=== PATIENT | female | born 1995 | race Caucasian/White ===

== ENCOUNTER 2017-03-22 08:22 | Emergency (ER) | payer OTHER ==
[2017-03-22 09:20] VITALS: BP 118/69
--- NOTE | 2017-03-22 09:31 | UC ---
Throat Pain/Nasal Diaz HPI - HPI Summary HPI Summary: complaint of nasal congestion and cough that started 3-4 days ago sore throat d/t coughing bilateral ear pain coughing so hard that it makes her back hurt feels nauseous -vomited 2x d/t coughing so hard, denies diarrhea felt feverish and has had chills denies headaches took some nyquil without relief hasn't used her albuterol inhaler d/t expiration date - History of Current Complaint Chief Complaint: UCRespiratory Stated Complaint: COUGH,YELLOW TONGUE,SOB Time Seen by Provider: 03/22/17 09:22 Hx Obtained From: Patient Hx Last Menstrual Period: 03/08/17 - Allergies/Home Medications Allergies/Adverse Reactions: Allergies Allergy/AdvReac Type Severity Reaction Status Date / Time No Known Allergies Allergy Verified 03/22/17 09:14 PMH/Surg Hx/FS Hx/Imm Hx Previously Healthy: Yes Endocrine History Of: Denies: Diabetes Cardiovascular History Of: Denies: Cardiac Disorders Respiratory History Of: Reports: Asthma Denies: COPD GI/ History Of: Denies: Gastroesophageal Reflux Neurological History Of: Denies: TIA - Surgical History Surgical History: Yes Surgery Procedure, Year, and Place: ear tube, adenoids - Family History Known Family History: Positive: None - Social History Occupation: Employed Full-time Lives: With Family Alcohol Use: None Substance Use Type: None Smoking Status (MU): Heavy Every Day Tobacco Smoker Type: Cigarettes, eCigarettes Amount Used/How Often: 1/2 PPD Length of Time of Smoking/Using Tobacco: 2 Years Have You Smoked in the Last Year: Yes When Did the Patient Quit Smoking/Using Tobacco: ~08/2015 Household Exposure Type: Cigarettes Cessation Counseling: Patient Advised to Stop - Immunization History Most Recent Influenza Vaccination: Not the 2014/2015 Season Vaccination Up to Date: Yes Review of Systems Constitutional: Fever, Chills Skin: Negative Eyes: Negative ENT: Ear Ache, Nasal Discharge Respiratory: Cough Cardiovascular: Negative Gastrointestinal: Negative Genitourinary: Negative Motor: Negative Neurovascular: Negative Musculoskeletal: Negative Neurological: Headache Psychological: Negative All Other Systems Reviewed And Are Negative: Yes Physical Exam Triage Information Reviewed: Yes Appearance: No Pain Distress, Well-Nourished Vital Signs: Initial Vital Signs Temp 98.5 F 03/22/17 09:15 Pulse 88 03/22/17 09:15 Resp 18 03/22/17 09:15 BP 118/69 03/22/17 09:15 Pulse Ox 94 03/22/17 09:15 Vital Signs Reviewed: Yes Eyes: Positive: Conjunctiva Clear ENT: Positive: Pharyngeal erythema, Nasal congestion, Nasal drainage, TMs normal Neck: Positive: No Lymphadenopathy Respiratory: Positive: No respiratory distress, Rhonchi - lower lobes, Wheezing - throughout Cardiovascular: Positive: RRR, No Murmur, Pulses Normal Abdomen Description: Positive: Nontender, Soft Bowel Sounds: Positive: Present Musculoskeletal Exam: Normal Neurological: Positive: Alert Psychological Exam: Normal Skin Exam: Normal Re-Evaluation - Re-Evaluation First Eval Change: Improved - less wheezing throughout Throat Pain/Nasal Course/Dx - Course Course Of Treatment: exam completed. will treat for asthma exacerbation/ bronchitis -smoker - Differential Dx/Diagnosis Differential Diagnosis/HQI/PQRI: Influenza, URI, Other - bronchitis Provider Diagnoses: asthma exacerbation Discharge - Discharge Plan Condition: Stable Disposition: HOME Prescriptions: Albuterol HFA INHALER* [Ventolin HFA Inhaler*] 2 puff INH Q4H PRN #1 mdi PRN Reason: Wheezing Azithromycin TAB* [Zithromax TAB (Z-CHRISSY) 250 mg #6 tabs] 2 tab PO .TODAY, THEN 1 DAILY #1 chrissy predniSONE TAB* [Deltasone TAB*] 50 mg PO DAILY #5 tab Patient Education Materials: Asthma (ED), How to Stop Smoking (ED) Referrals: No Primary Care Phys,NOPCP [Primary Care Provider] - [facility] [Outside] Additional Instructions: Please take antibiotic as directed Use your albuterol inhaler every 4-6 hours when needed for wheezing, shortness of breath or uncontrolled coughing. Increase fluids and rest Take acetaminophen or ibuprofen for fever or pain Please review your discharge instructions. If your symptoms do not improve please call your primary care provider or return to urgent care.
[2017-03-22] MEDS ORDERED: Albuterol/Ipratropium NEB.SOL* Albuterol 2.5 MG/Ipratropium 0.5 MG 3 ML INH ONE (09:34)
== END 2017-03-22 10:28 | disposition home or self-care (01) ==
LOC: UCCORT 08:22
DX: J45.901 Unspecified asthma with (acute) exacerbation (principal); F17.210 Nicotine dependence, cigarettes, uncomplicated
CPT/HCPCS: 87502; 99212; A9270-GY; G0463

== ENCOUNTER 2017-07-25 15:59 | Emergency (ER) | payer OTHER ==
[2017-07-25 17:56] VITALS: BP 107/70
[2017-07-25] MEDS ORDERED: Cephalexin CAP* 500 MG PO ONE (18:18)
--- NOTE | 2017-07-25 18:18 | UC ---
Complaint Female HPI - HPI Summary HPI Summary: patient has had a few days of buring with urination and increase frequency - History Of Current Complaint Chief Complaint: UCGU Stated Complaint: URINARY Time Seen by Provider: 07/25/17 18:06 Hx Obtained From: Patient Hx Last Menstrual Period: doesn't get - has implanon ?: No Onset/Duration: Sudden Onset, Lasting Days Timing: Lasting Days Severity Initially: Moderate Severity Currently: Moderate Character: Dull Aggravating Factor(s): Urination - Allergies/Home Medications Allergies/Adverse Reactions: Allergies Allergy/AdvReac Type Severity Reaction Status Date / Time No Known Allergies Allergy Verified 07/25/17 17:52 PMH/Surg Hx/FS Hx/Imm Hx Previously Healthy: Yes - Surgical History Surgical History: Yes Surgery Procedure, Year, and Place: ear tubes, adenoids - Family History Known Family History: Positive: None Negative: Cardiac Disease, Hypertension - Social History Alcohol Use: Occasionally Substance Use Type: None Smoking Status (MU): Heavy Every Day Tobacco Smoker Type: Cigarettes Amount Used/How Often: 1/2 PPD Length of Time of Smoking/Using Tobacco: 2 Years Have You Smoked in the Last Year: Yes When Did the Patient Quit Smoking/Using Tobacco: ~08/2015 Household Exposure Type: Cigarettes - Immunization History Most Recent Influenza Vaccination: Not the Season Vaccination Up to Date: Yes Review of Systems Constitutional: Chills, Fatigue Skin: Negative Eyes: Negative ENT: Negative Respiratory: Negative Cardiovascular: Negative Gastrointestinal: Negative Genitourinary: Dysuria, Hematuria, Frequency Motor: Negative Neurovascular: Negative Musculoskeletal: Negative Neurological: Negative Psychological: Negative All Other Systems Reviewed And Are Negative: Yes Physical Exam Triage Information Reviewed: Yes Appearance: Well-Nourished, Ill-Appearing, Pain Distress Vital Signs: Initial Vital Signs Temp 99.1 F 07/25/17 17:53 Pulse 101 07/25/17 17:53 Resp 16 07/25/17 17:53 BP 107/70 07/25/17 17:53 Pulse Ox 99 07/25/17 17:53 Vital Signs Reviewed: Yes Eye Exam: Normal ENT Exam: Normal ENT: Positive: Pharynx normal, Pharyngeal erythema, TMs normal Dental Exam: Normal Neck exam: Normal Respiratory Exam: Normal Cardiovascular Exam: Normal Cardiovascular: Positive: RRR, No Murmur, Pulses Normal Abdominal Exam: Normal Abdomen Description: Positive: Nontender, No Organomegaly, Soft, CVA Tenderness (R) - neg, CVA Tenderness (L) - neg Bowel Sounds: Positive: Present Musculoskeletal Exam: Normal Musculoskeletal: Positive: Strength Intact, ROM Intact, No Edema Neurological Exam: Normal Neurological: Positive: Alert, Muscle Tone Normal Psychological Exam: Normal Skin Exam: Normal Complaint Female Dx - Course Course Of Treatment: hx obtained, exam performed ,meds reviewed, UA obtained, treated for UTI - Differential Dx/Diagnosis Differential Diagnosis/HQI/PQRI: Ureteral Stone, Urinary Tract Infection Provider Diagnoses: UTI Discharge - Discharge Plan Condition: Stable Disposition: HOME Prescriptions: Cephalexin CAP* [Keflex CAP*] 500 mg PO BID #14 cap Patient Education Materials: Urinary Tract Infection in Women (ED) Additional Instructions: 1. increase fluid intake and get plenty of rest. 2. Take the medication as prescribed.
== END 2017-07-25 18:27 | disposition home or self-care (01) ==
LOC: UCCORT 15:59
DX: N39.0 Urinary tract infection, site not specified (principal); F17.210 Nicotine dependence, cigarettes, uncomplicated
CPT/HCPCS: 81003; 87086; 99212; A9270-GY; G0463

== ENCOUNTER 2017-09-04 10:34 | Emergency (ER) | payer OTHER ==
[2017-09-04 10:47] VITALS: BP 114/75
--- NOTE | 2017-09-04 10:48 | UC ---
Respiratory Complaint HPI - HPI Summary HPI Summary: 22 YEAR OLD FEMALE PRESENTS WITH COMPLAINS OF COUGH, SINUS PRESSURE AND POST NASAL DRIP. - History of Current Complaint Chief Complaint: UCRespiratory Stated Complaint: COUGH CONGESTION Time Seen by Provider: 09/04/17 10:48 Hx Obtained From: Patient Hx Last Menstrual Period: unknown, nexplanon Onset/Duration: Sudden Onset Timing: Constant Severity Initially: Moderate Severity Currently: Moderate Pain Scale Used: 0-10 Numeric - 5 - Allergies/Home Medications Allergies/Adverse Reactions: Allergies Allergy/AdvReac Type Severity Reaction Status Date / Time No Known Allergies Allergy Verified 09/04/17 10:46 PMH/Surg Hx/FS Hx/Imm Hx - Surgical History Surgical History: Yes Surgery Procedure, Year, and Place: ear tubes, adenoids - Family History Known Family History: Positive: None Negative: Cardiac Disease, Hypertension - Social History Alcohol Use: None Substance Use Type: None Smoking Status (MU): Never Smoked Tobacco Type: Cigarettes Amount Used/How Often: 1/2 PPD Length of Time of Smoking/Using Tobacco: 2 Years Have You Smoked in the Last Year: No When Did the Patient Quit Smoking/Using Tobacco: ~08/2015 Household Exposure Type: Cigarettes - Immunization History Most Recent Influenza Vaccination: not 2017 Vaccination Up to Date: Yes Review of Systems Constitutional: Negative Skin: Negative Eyes: Negative ENT: Negative Respiratory: Negative Cardiovascular: Negative Gastrointestinal: Negative Genitourinary: Negative Motor: Negative Neurovascular: Negative Musculoskeletal: Negative Neurological: Negative Psychological: Negative All Other Systems Reviewed And Are Negative: Yes Physical Exam Triage Information Reviewed: Yes Appearance: Well-Appearing Vital Signs: Initial Vital Signs Temp 36.9 C 09/04/17 10:42 Pulse 91 09/04/17 10:42 Resp 16 09/04/17 10:42 BP 114/75 09/04/17 10:42 Pulse Ox 98 09/04/17 10:42 Vital Signs Reviewed: Yes Eye Exam: Normal ENT: Positive: Pharyngeal erythema, Nasal congestion, Nasal drainage Dental Exam: Normal Neck exam: Normal Neck: Positive: 1 Respiratory: Positive: Rhonchi, Wheezing Cardiovascular Exam: Normal Abdominal Exam: Normal Musculoskeletal Exam: Normal Neurological Exam: Normal Psychological Exam: Normal Skin Exam: Normal UC Diagnostic Evaluation - Laboratory O2 Sat by Pulse Oximetry: 98 Respiratory Course/Dx - Differential Dx/Diagnosis Provider Diagnoses: BRONCHITIS. PHARYNGITIS Discharge - Discharge Plan Condition: Stable Disposition: HOME Prescriptions: Azithromyxin CHRISSY (NF) [Z-Chrissy (Zithromax) 250 mg tabs #6] 2 tab PO .TODAY, THEN 1 DAILY #6 tab Benzonatate [TESSALON 200 MG CAP] 200 mg PO TID PRN #30 cap PRN Reason: Cough LoraTADine TAB(NF) [Claritin 10 MG TAB(NF)] 10 mg PO DAILY #30 tab guaiFENesin/CODIEN 100MG-10MG* [Robitussin AC 100Mg-10Mg*] 5 ml PO Q8H PRN #120 ml MDD 15 PRN Reason: Cough Patient Education Materials: Bronchospasm (ED), Acute Cough (ED) Referrals: No Primary Care Phys,NOPCP [Primary Care Provider] -
== END 2017-09-04 11:02 | disposition home or self-care (01) ==
LOC: UCCORT 10:34
DX: J40 Bronchitis, not specified as acute or chronic (principal); J02.9 Acute pharyngitis, unspecified
CPT/HCPCS: 99212; G0463

== ENCOUNTER 2018-01-19 19:40 | Emergency (ER) | payer OTHER ==
[2018-01-19 20:37] VITALS: BP 114/62
--- NOTE | 2018-01-19 20:42 | UC ---
Skin Complaint HPI - HPI Summary HPI Summary: Pt with 3 days development right axillary erythema, raised area mild TTP no drainage no h/o similar no h/o MRSA pt states tried to "squeeze" increased pain without drainage. Not immunocompromised Pt's medications reviewed this visit - History of Current Complaint Chief Complaint: UCSkin Time Seen by Provider: 01/19/18 20:41 Stated Complaint: LUMP UNDER RIGHT ARM Hx Obtained From: Patient Hx Last Menstrual Period: DOES NOT HAVE REGULAR PEROIDS, HAS THE IMPLAMON ?: No Onset/Duration: Gradual Onset Skin Exposure Onset/Duration: Days Ago Timing: Constant Onset Severity: Mild Current Severity: Mild Pain Intensity: 2 Pain Scale Used: 0-10 Numeric Location: Discrete, Other - right axilla Character: Redness, Raised, Painful Aggravating Factor(s): Touch Alleviating Factor(s): Nothing Associated Signs & Symptoms: Positive: Negative - Allergy/Home Medications Allergies/Adverse Reactions: Allergies Allergy/AdvReac Type Severity Reaction Status Date / Time No Known Allergies Allergy Verified 01/19/18 20:25 Review of Systems Constitutional: Negative Skin: Other Is Patient Immunocompromised?: No All Other Systems Reviewed And Are Negative: Yes PMH/Surg Hx/FS Hx/Imm Hx Previously Healthy: Yes - Surgical History Surgical History: Yes Surgery Procedure, Year, and Place: ear tubes, adenoids - Family History Known Family History: Positive: None Negative: Cardiac Disease, Hypertension - Social History Occupation: Employed Full-time Lives: With Family Alcohol Use: Rare Substance Use Type: None Smoking Status (MU): Light Every Day Tobacco Smoker Type: Cigarettes Amount Used/How Often: 1/2 PPD Length of Time of Smoking/Using Tobacco: 2 Years Have You Smoked in the Last Year: No When Did the Patient Quit Smoking/Using Tobacco: ~08/2015 Household Exposure Type: Cigarettes - Immunization History Most Recent Influenza Vaccination: not 2017 Vaccination Up to Date: Yes Physical Exam Triage Information Reviewed: Yes Appearance: Well-Appearing, No Pain Distress, Well-Nourished Vital Signs: Initial Vital Signs Temp 98.6 F 01/19/18 20:26 Pulse 88 01/19/18 20:26 Resp 18 01/19/18 20:26 BP 114/62 01/19/18 20:26 Pulse Ox 99 01/19/18 20:26 Eye Exam: Normal Eyes: Positive: Conjunctiva Clear ENT Exam: Normal ENT: Positive: Hearing grossly normal, Pharynx normal, TMs normal Neck exam: Normal Neck: Positive: Supple, Nontender Respiratory Exam: Normal Respiratory: Positive: Chest non-tender, Lungs clear, Normal breath sounds, No respiratory distress, No accessory muscle use Cardiovascular Exam: Normal Cardiovascular: Positive: RRR, No Murmur, Pulses Normal Musculoskeletal Exam: Normal Musculoskeletal: Positive: Strength Intact Neurological Exam: Normal Neurological: Positive: Alert Psychological Exam: Normal Psychological: Positive: Normal Response To Family Skin: Positive: Other - right axilla - inflammed follicle anterior margin on axilla slight firm, indurated no fluctuance mild warmth TTP no drainage mild surroudning erythema Course/Dx - Course Course Of Treatment: Pt with inflammed focal folliculitis in right axilla. + indurated, no drainage. mild TTP. d/w pt at length. warm soaks. doxycycline. motrin/apap. return precautions discussed. Pt comfortable and in agreement with plan - Diagnoses Provider Diagnoses: folliculitis Discharge - Discharge Plan Condition: Stable Disposition: HOME Prescriptions: DOXYcycline CAP(*) [DOXYcycline 100MG CAP(*)] 100 mg PO DAILY #20 cap Patient Education Materials: Cellulitis (ED), Folliculitis (ED) Referrals: No Primary Care Phys,NOPCP [Primary Care Provider] - Additional Instructions: apply soaking wet, warm wash cloth to your wound for 20 minutes at a time, 2-3 times a day okay to alternate ibuprofen (advil, motrin) and tylenol every 3 hours as needed for pain take antibiotics as prescribed until gone If you develop increased reddness, red streaking,fever or any other concerns it is recommended you go to the emergency department for futher evaluation and treatment
[2018-01-19] MEDS ORDERED: DOXYcycline CAP(*) 100 MG PO ONE (20:52)
== END 2018-01-19 21:02 | disposition home or self-care (01) ==
LOC: UCCORT 19:40
DX: L73.9 Follicular disorder, unspecified (principal); Z87.891 Personal history of nicotine dependence
CPT/HCPCS: 99212; A9270-GY; G0463

== ENCOUNTER 2018-01-25 16:22 | Emergency (ER) | payer OTHER | END 2018-01-25 17:01 | disposition left against medical advice (07) | LOC: UCCORT 16:22 | DX: H92.03 Otalgia, bilateral (principal); R05 Cough; Z53.21 Procedure and treatment not carried out due to patient leaving prior to being seen by health care provider ==

== ENCOUNTER 2018-01-26 08:28 | Emergency (ER) | payer OTHER ==
[2018-01-26 08:50] VITALS: BP 132/86
--- NOTE | 2018-01-26 09:07 | UC ---
Respiratory Complaint HPI - HPI Summary HPI Summary: cough x 1 day + nasal congest, pnd no sore throat, no fever, no chills - History of Current Complaint Chief Complaint: UCGeneralIllness Stated Complaint: RUNNY NOSE/COUGH Time Seen by Provider: 01/26/18 09:01 Hx Obtained From: Patient Hx Last Menstrual Period: implanon ?: No Onset/Duration: Gradual Onset, Lasting Days - 1, Still Present Timing: Constant Severity Initially: Moderate Severity Currently: Moderate Pain Intensity: 0 Character: Cough: Nonproductive Aggravating Factors: Exertion, Deep Breaths Alleviating Factors: Nothing Associated Signs And Symptoms: Positive: Chills, URI, Nasal Congestion. Negative: Fever, Wheezing, Hemoptysis, Dizziness - Allergies/Home Medications Allergies/Adverse Reactions: Allergies Allergy/AdvReac Type Severity Reaction Status Date / Time No Known Allergies Allergy Verified 01/26/18 08:50 PMH/Surg Hx/FS Hx/Imm Hx Previously Healthy: Yes - Surgical History Surgical History: Yes Surgery Procedure, Year, and Place: ear tubes, adenoids - Family History Known Family History: Positive: None Negative: Cardiac Disease, Hypertension - Social History Alcohol Use: None Substance Use Type: None Smoking Status (MU): Never Smoked Tobacco Type: Cigarettes Amount Used/How Often: 1/2 PPD Length of Time of Smoking/Using Tobacco: 2 Years Have You Smoked in the Last Year: No When Did the Patient Quit Smoking/Using Tobacco: ~08/2015 Household Exposure Type: Cigarettes - Immunization History Most Recent Influenza Vaccination: not 2017 Vaccination Up to Date: Yes Review of Systems Constitutional: Negative Skin: Negative Eyes: Negative ENT: Sore Throat, Nasal Discharge, Sinus Congestion Respiratory: Cough Cardiovascular: Negative Gastrointestinal: Negative Genitourinary: Negative Is Patient Immunocompromised?: No All Other Systems Reviewed And Are Negative: Yes Physical Exam Triage Information Reviewed: Yes Appearance: Well-Appearing, No Pain Distress, Well-Nourished Vital Signs: Initial Vital Signs Temp 98.0 F 01/26/18 08:45 Pulse 90 01/26/18 08:45 Resp 18 01/26/18 08:45 BP 132/86 01/26/18 08:45 Pulse Ox 97 01/26/18 08:45 Vital Signs Reviewed: Yes Eyes: Positive: Conjunctiva Clear ENT: Positive: Pharyngeal erythema, Nasal drainage, TMs normal Neck: Positive: Supple, Nontender, No Lymphadenopathy Respiratory: Positive: Chest non-tender, Lungs clear, Normal breath sounds Cardiovascular: Positive: RRR, No Murmur, Pulses Normal Skin Exam: Normal UC Diagnostic Evaluation - Laboratory O2 Sat by Pulse Oximetry: 97 Respiratory Course/Dx - Differential Dx/Diagnosis Provider Diagnoses: uri Discharge - Discharge Plan Condition: Stable Disposition: HOME Patient Education Materials: Upper Respiratory Infection (ED) Forms: *Work Release Referrals: No Primary Care Phys,NOPCP [Primary Care Provider] - If Needed
== END 2018-01-26 09:15 | disposition home or self-care (01) ==
LOC: UCCORT 08:28
DX: J06.9 Acute upper respiratory infection, unspecified (principal); F17.210 Nicotine dependence, cigarettes, uncomplicated
CPT/HCPCS: 99211; G0463

== ENCOUNTER 2018-06-22 11:58 | Emergency (ER) | payer OTHER ==
[2018-06-22 12:40] VITALS: BP 113/61
--- NOTE | 2018-06-22 13:05 | UC ---
Eye Complaint HPI - HPI Summary HPI Summary: LEFT EYE SWELLING X 1 DAY NO KNOWN INJURY THE SWELLING IS ON HER LEFT UPPER EYELID , VERY PAINFUL NO CHANGE IN VISION , NO EYE REDNESS, NO DISCHARGE AND NO PHOTOPHOBIA - History of Current Complaint Chief Complaint: UCEye Stated Complaint: LEFT EYE Time Seen by Provider: 06/22/18 12:55 Hx Obtained From: Patient Hx Last Menstrual Period: implanon ?: No Onset/Duration: Gradual Onset, Lasting Days - 1, Still Present Timing: Days - 1 Severity Initially: Moderate Severity Currently: Moderate Pain Intensity: 4 Location of Injury: Eye Lid (upper) - LEFT SIDE Character: Dull Aggravating Factor(s): Blinking, Other - TOUCH Alleviating Factor(s): Nothing Associated Signs And Symptoms: Negative: Photophobia, Drainage (Clear), Drainage (Purulent), Vision Impairment Bilateral, Vision Impairment Right, Vision Impairment Left, Fever, Swelling - Allergies/Home Medications Allergies/Adverse Reactions: Allergies Allergy/AdvReac Type Severity Reaction Status Date / Time No Known Allergies Allergy Verified 06/22/18 12:35 PMH/Surg Hx/FS Hx/Imm Hx Previously Healthy: Yes - Surgical History Surgical History: Yes Surgery Procedure, Year, and Place: ear tubes, adenoids - Family History Known Family History: Positive: None Negative: Cardiac Disease, Hypertension, Diabetes - Social History Alcohol Use: None Substance Use Type: None Smoking Status (MU): Heavy Every Day Tobacco Smoker Type: Cigarettes Amount Used/How Often: 1/2 PPD Length of Time of Smoking/Using Tobacco: 2 Years Have You Smoked in the Last Year: No When Did the Patient Quit Smoking/Using Tobacco: ~08/2015 Household Exposure Type: Cigarettes - Immunization History Most Recent Influenza Vaccination: not 2017 Vaccination Up to Date: Yes Review of Systems Constitutional: Negative Skin: Negative Eyes: Other - RIGHT EYE PAIN ENT: Negative Respiratory: Negative Cardiovascular: Negative Is Patient Immunocompromised?: No All Other Systems Reviewed And Are Negative: Yes Physical Exam Triage Information Reviewed: Yes Appearance: Well-Appearing, No Pain Distress, Well-Nourished Vital Signs: Initial Vital Signs Temp 98.3 F 06/22/18 12:35 Pulse 82 06/22/18 12:35 Resp 16 06/22/18 12:35 BP 113/61 06/22/18 12:35 Pulse Ox 98 07/24/18 12:35 Vital Signs Reviewed: Yes Eye Exam: Normal Eyes: Positive: Conjunctiva Clear, Other: - LEFT UPPER EYELID: + SWELLING, TENDERNESS , NO DISCHARGE, NO ERYTHEMA. Negative: Conjunctiva Inflamed, Discharge ENT: Positive: Normal ENT inspection, Hearing grossly normal, Pharynx normal Neck: Positive: Supple, Nontender, No Lymphadenopathy Respiratory: Positive: Chest non-tender, Lungs clear, Normal breath sounds Cardiovascular: Positive: RRR, No Murmur, Pulses Normal Eye Complaint Course/Dx - Differential Dx/Diagnosis Provider Diagnoses: STYE LEFT UPPER EYELID Discharge - Sign-Out/Discharge Documenting (check all that apply): Patient Departure - Discharge Plan Condition: Stable Disposition: HOME Prescriptions: Tobramycin 0.3% OPHTH.LOPEZ* 1 drop LEFT EYE Q4H #1 btl Patient Education Materials: Mannie (ED) Referrals: No Primary Care Phys,NOPCP [Primary Care Provider] - 7 Days - Billing Disposition and Condition Condition: STABLE Disposition: Home
== END 2018-06-22 13:04 | disposition home or self-care (01) ==
LOC: UCCORT 11:58
DX: Z87.891 Personal history of nicotine dependence (principal); H00.024 Hordeolum internum left upper eyelid
CPT/HCPCS: 99212; G0463

== ENCOUNTER 2018-09-07 14:26 | Emergency (ER) | payer OTHER ==
[2018-09-07] MEDS ORDERED: Albuterol 2.5 MG/3 ML NEB.SOL* (0.083%) INH ONE (14:52)
[2018-09-07] MEDS ORDERED: predniSONE TAB* 20 MG PO ONE (14:53)
--- NOTE | 2018-09-07 15:00 | UC ---
UC General HPI - HPI Summary HPI Summary: PT C/O 2 DAY HX COUGH, WHEEZING AND SOB. HAS A HX OF ASTHMA AND USUALLY GETS A NEB TX HERE WHEN SHE GETS LIKE THIS. + SUBJECTIVE FEVER AND CHILLS. NO CP, CALF PAIN, HX DVT OR LEG SWELLING. - History of Current Complaint Chief Complaint: UCRespiratory Stated Complaint: CONGESTION COUGH Time Seen by Provider: 09/07/18 14:47 Hx Obtained From: Patient Hx Last Menstrual Period: implanon Onset/Duration: Gradual Onset Timing: Constant Pain Intensity: 9 Associated Signs & Symptoms: Positive: Cough, Fever, SOB, Wheezing - Allergy/Home Medications Allergies/Adverse Reactions: Allergies Allergy/AdvReac Type Severity Reaction Status Date / Time No Known Allergies Allergy Verified 09/07/18 14:50 PMH/Surg Hx/FS Hx/Imm Hx Respiratory History: Asthma - Surgical History Surgical History: Yes Surgery Procedure, Year, and Place: ear tubes, adenoids - Family History Known Family History: Positive: None Negative: Cardiac Disease, Hypertension, Diabetes - Social History Occupation: Student Alcohol Use: None Substance Use Type: None Smoking Status (MU): Heavy Every Day Tobacco Smoker Type: Cigarettes Amount Used/How Often: 1/2 PPD Length of Time of Smoking/Using Tobacco: 2 Years Have You Smoked in the Last Year: No When Did the Patient Quit Smoking/Using Tobacco: ~08/2015 Household Exposure Type: Cigarettes - Immunization History Most Recent Influenza Vaccination: not 2017 Vaccination Up to Date: Yes Review of Systems Constitutional: Fever, Chills, Fatigue Skin: Negative Eyes: Negative ENT: Negative Respiratory: Shortness Of Breath, Cough Cardiovascular: Negative Gastrointestinal: Negative Genitourinary: Negative Motor: Negative Neurovascular: Negative Musculoskeletal: Negative Neurological: Negative Psychological: Negative Is Patient Immunocompromised?: No All Other Systems Reviewed And Are Negative: Yes Physical Exam Triage Information Reviewed: Yes Appearance: Ill-Appearing - BUT NON TOXIC Vital Signs: Initial Vital Signs Temp 99.0 F 09/07/18 14:44 Pulse 122 09/07/18 14:44 Resp 18 09/07/18 14:44 BP 115/59 09/07/18 14:44 Pulse Ox 93 09/07/18 14:44 Eyes: Positive: Conjunctiva Clear ENT: Positive: Pharynx normal, TMs normal. Negative: Nasal congestion, Nasal drainage Neck: Positive: Supple, Nontender, No Lymphadenopathy Respiratory: Positive: Decreased breath sounds, Other: - Congested bronchospastic cough. Cardiovascular: Positive: No Murmur, Brisk Capillary Refill, Tachycardia Abdomen Description: Positive: Nontender, No Organomegaly, Soft, Distended, Guarding Bowel Sounds: Positive: Present - 1 Musculoskeletal: Positive: ROM Intact - No cords or calf tenderness., No Edema, Other: Neurological: Positive: Alert Psychological: Positive: Age Appropriate Behavior Skin Exam: Normal Diagnostics - Radiology No standard instances Radiology Interpretation Completed By: Radiologist - cxr=NO ACTIVE CARDIOPULMONARY DISEASE. Re-Evaluation - Re-Evaluation Second Eval Re-Evaluation Time: 15:51 Change: Improved - sat better and good aeration. pt states now feeling fine. Course/Dx - Course Course Of Treatment: Chest x-ray was unremarkable. Saturation and heart rate improved with treatment. Patient reports feeling much improved requesting discharge. Need to establish and follow up with primary care stressed at time of visit. - Differential Dx - Multi-Symptom Provider Diagnoses: asthma flare Discharge - Sign-Out/Discharge Documenting (check all that apply): Patient Departure All imaging exams completed and their final reports reviewed: Yes - Discharge Plan Condition: Stable Disposition: HOME Prescriptions: Albuterol HFA INHALER* [Ventolin HFA Inhaler*] 2 puff INH Q6H #1 mdi predniSONE TAB* [Deltasone 20 MG TAB*] 40 mg PO DAILY 3 Days #6 tab Patient Education Materials: Asthma (ED) Forms: *School Release Referrals: MEDARDO Paiz [Medical Doctor] - As Soon As Possible - Billing Disposition and Condition Condition: STABLE Disposition: Home
--- NOTE | 2018-09-07 15:46 | RAD ---
HISTORY: cough, sob, f/c's COMPARISONS: None VIEWS: 4: Frontal dual-energy and lateral views of the chest. FINDINGS: CARDIOMEDIASTINAL SILHOUETTE: The cardiomediastinal silhouette is normal. BENNY: The benny are normal. PLEURA: The costophrenic angles are sharp. No pleural abnormalities are noted. LUNG PARENCHYMA: The lungs are clear. ABDOMEN: The upper abdomen is clear. There is no subphrenic gas. BONES AND SOFT TISSUES: No bone or soft tissue abnormalities are noted. OTHER: None. IMPRESSION: NO ACTIVE CARDIOPULMONARY DISEASE.
[2018-09-07 15:49] VITALS: BP 119/69
== END 2018-09-07 16:04 | disposition home or self-care (01) ==
LOC: UCCORT 14:26
DX: J45.909 Unspecified asthma, uncomplicated (principal)
CPT/HCPCS: 71046; 99213; G0463; J7512

== ENCOUNTER 2018-10-08 15:48 | Emergency (ER) | payer OTHER ==
--- OUTSIDE RECORDS SUMMARY | 2018-10-08 15:55 | XMS REPORT | Continuity of Care Document ---
:1995 External Reference #:[id number] Author Name Elana Aldana NP Address [address] [place] [address] Care Team Providers Name Role Phone No Primary Care Physician Unavailable Payers Type Date Identification Numbers Payment Provider Subscriber Effective: 2016 Policy Number: [id number] [facility] Carline Long PayID: [id number] [address] [place] [address] Policy Number: [id number] Medicaid -[place] Carline Long PayID: [id number] [address] [place] [address] Expires: 2016 Policy Number: [id number] Medicaid Pe ([facility]) Carline Long PayID: [id number] [address] [place] [address] Advance Directives Description No Information Available Problems Description No Active Problems Family History Date Family Member(s) Problem(s) Comments Father Alive Father No Current Problems Mother Alive Mother No Current Problems Social History Type Date Description Comments Sex Female Education Currently attending 12th grade Diet Healthy, Well Balanced Abuse No history of abuse Abuse Not Currently Experiencing Domestic Violence Abuse Not Currently Experiencing Emotional Abuse Abuse Not Currently Experiencing Physical Abuse Abuse Not Currently Experiencing Sexual Abuse ETOH Use social drinker in the past Recreational Drug Use Denies Drug Use Tobacco Use Start: Unknown Light tobacco smoker (10 or fewer cigarettes/day) Tobacco Use Start: Unknown Pt. states she has started smoking again Exercise Type/Frequency Exercises regularly Tattoo/Piercing Tattoo Tattoo/Piercing Pierced navel Sun Exposure Uses sunscreen Seat Belt/Car Seat Always uses seat belt Currently Active Patient is currently sexually active Last [place] 5 days ago Condom Use Always Contraceptive Methods Past methods include depo-provera injection Contraceptive Methods Past methods include oral contraceptives Age 1st [place] 13 Years Old # Partners in a Lifetime Has been with current partner for 2 months Additional Info 5 partners in lifetime Allergies, Adverse Reactions, Alerts Date Description Reaction Status Severity Comments 12/26/2015 Seasonal Active Medications Medication Date Status Form Strength Qnty SIG Indications Ordering Provider Zithromax 10/01/ Active Tablets 500mg 2tabs two tabs by Elana Galvan 2017 mouth x 1 for chente Aldana NP partner treatment Inhaler 09/29/ Active Q 4 hrs as In [facility] (Unknown 2015 needed for MD Jose Name) bronchospasm No Active 12/26/ Hx Leonard, Medications 2016 - Anabelle, RN 2015 Nexplanon 12/26/ Hx Implant 68mg inserted Z30.49 In [facility] 2016 - today. 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 J-Azithromycin 2tabs Administered Injection Elana M , 500MG, Qnty 10/01 Kelchdomenic, MUSIC GRAPHER Nexplanon 12/26 Administered Injection Sakshi VINCENT Erwin Immunizations Description No Information Available Vital Signs Date Vital Result Comment 09/27/2018 1:59pm BP Systolic 118 mmHg BP Diastolic 85 mmHg Heart Rate 86 /min Height 60 inches 5'0" Weight 156.00 lb BMI (Body Mass Index) 30.5 kg/m2 01/05/2017 1:59pm BP Systolic 108 mmHg BP Diastolic 70 mmHg Height 60.5 inches 5'0.50" 09/29/2016 9:36am BP Systolic 100 mmHg BP Diastolic 58 mmHg Height 60.5 inches 5'0.50" Weight 140.00 lb BMI (Body Mass Index) 26.9 kg/m2 12/26/2015 1:19pm BP Systolic 100 mmHg BP Diastolic 60 mmHg Height 60.5 inches 5'0.50" Weight 131.00 lb BMI (Body Mass Index) 25.2 kg/m2 Last Menstrual Period [id number] Results Test Date Facility Test Result H/L Range Note Chlamydia/N 09/28/[address] [facility] [address],Rna,Tma,Ur DETECTED Not Detected 1 Gonorroeae Rna Tma ogenital Urogenit GC Rna,Tma,Urogen NOT DETECTED Not Detected 2 Laboratory test 09/29/2016 [facility] C.Trachomatis NOT DETECTED Not Detected 3 finding Rna,Tma W/RFX N.Gonorrhoeae Rna,Tma Urinalysis DIP 12/26/2015 [facility] Urine Protein Random N Only.... Urine Glucose QN Random N Laboratory test finding 12/26/2015 [facility] Test Urine..... neg [address] or NG Nucleic Acid Amplification Test (NAAT) result should be considered presumptive evidence of infection. The result should be evaluated along with physical examination and other diagnostic findings. This test was performed using the APTIMA COMBO2(R) Assay (GEN-PROBE(R). The analytical performance characteristics of this assay, when used to test SurePath(R) specimens have been determined by adjust. 2 This test was performed using the APTIMA COMBO2(R) Assay (GEN-PROBE(R). The analytical performance characteristics of this assay, when used to test SurePath(R) specimens have been determined by adjust. 3 This test was performed using the APTIMA COMBO2(R) Assay (GEN-PROBE(R). The analytical performance characteristics of this assay, when used to test SurePath(R) specimens have been determined by adjust. Procedures Date Code Description Status 09/27/2018 00565 Removal, Non-Biodegradable Drug Delivery Implant Completed 12/26/2015 23891 Insertion, Non-Biodegradable Drug Delivery Implant Completed Encounters Description No Information Available Plan of Treatment 10/01/2018 - Elana Aldana, NPA56.02 Chlamydial vulvovaginitisComments:Patient has tested positive for Chlamydia. Treated today with Zmax 1 gm po and gave Zmax 1 gm to go for EPT. Reviewed use of, side effects and precautions of medication and EPT with patient who states understanding. Instructed patient to abstain from ic x 1 week. Encouraged patient on consistent condom use.Follow up: Needs to schedule an annual/ PAPZ30.09 Encounter for other general counseling and advice on contraceptionComments:Discussion regarding contraception choices. Patient is not interested in starting any bc today.She states that she would be happy to become . Reviewed with patient that she is at risk of and should avoid tobacco, alcohol and drugs. Patient states understanding.
--- OUTSIDE RECORDS SUMMARY | 2018-10-08 15:55 | XMS REPORT | Continuity of Care Document ---
:1995 External Reference #:[id number] Author Name Noemi Delgadillo NP Address [address] [place] [address] Care Team Providers Name Role Phone No Primary Care Physician Unavailable Payers Type Date Identification Numbers Payment Provider Subscriber Effective: 2016 Policy Number: [id number] [facility] Carline Long PayID: [id number] [address] [place] [address] Policy Number: [id number] Medicaid -[place] Carline Long PayID: [id number] [address] [place] [address] Expires: 2016 Policy Number: [id number] Medicaid Pe ([facility]) Carline Long PayID: [id number] [address] [place] [address] Advance Directives Description No Information Available Problems Description No Active Problems Family History Date Family Member(s) Problem(s) Comments Father Alive Father No Current Problems Mother Alive Mother No Current Problems Social History Type Date Description Comments Sex Unknown Education Currently attending 12th grade Diet Healthy, [...] Active Patient is currently sexually active Last [place] 5 days ago Condom Use Always Contraceptive Methods Past methods include depo-provera injection Contraceptive Methods Past methods include oral contraceptives Age 1st [place] 13 Years Old # Partners in a Lifetime Has been with current partner for 2 months Additional Info 5 partners in lifetime Allergies, Adverse Reactions, Alerts Date Description Reaction Status Severity Comments 12/26/2015 Seasonal Active Medications Medication Date Status Form Strength Qnty SIG Indications Ordering Provider Inhaler 09/29/ Active Q 4 hrs as In [facility] (Unknown Name) 2015 needed for MD Jose bronchospasm Nexplanon 12/26/ Active Implant 68mg inserted Z30.49 In [facility] 2016 today. 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 Random Urine Glucose QN Random N Laboratory test finding 12/26/2015 [facility] Test Urine..... neg 1 This test was performed using the APTIMA COMBO2(R) Assay (GEN-PROBE(R). The analytical performance characteristics of this assay, when used to test SurePath(R) specimens have been determined by [employer]. Procedures Date Code Description Status 09/27/2018 88878 Removal, Non-Biodegradable Drug Delivery Implant Completed 12/26/2015 69959 Insertion, Non-Biodegradable Drug Delivery Implant Completed Encounters Description No Information Available Plan of Treatment Future Appointment(s):09/29/2018 9:30 am - [employer]FETERIA WORKER at [facility]09/27/2018 - Noemi Delgadillo NPZ30.46 Encounter for surveillance of implantable subdermal knexvadeX16.3 Encounter for screening for infections with a predominantlyNew Labs:Chlamydia/N Gonorroeae Rna Tma Urogenit, Ordered: 09/27/18ollow up:Follow up if any further symptoms.
[2018-10-08 16:11] VITALS: BP 102/69
[2018-10-08] MEDS ORDERED: Azithromycin TAB* 250 MG PO ONE (16:12)
--- NOTE | 2018-10-08 16:12 | UC ---
Complaint Female HPI - HPI Summary HPI Summary: 23 yo female presents requesting treatment for chlamydia. She tells me that about 2 weeks ago she tested positive for chlamydia and was treated with 1gm of Azithromycin. She refrained from sexual intercourse for 1 week as instructed, but then had sex with her boyfriend. Her boyfriend then tested positive for chlamydia 2 days ago and she is concerned she was reinfected. She is not currently having any symptoms and does not want to be tested again or other STD testing. - History Of Current Complaint Chief Complaint: UCGU Stated Complaint: PERSONAL Time Seen by Provider: 10/08/18 16:11 Hx Obtained From: Patient Hx Last Menstrual Period: "...over a year. I just got my brith control taken out." Severity Currently: None Pain Intensity: 0 - Allergies/Home Medications Allergies/Adverse Reactions: Allergies Allergy/AdvReac Type Severity Reaction Status Date / Time No Known Allergies Allergy Verified 10/08/18 16:06 Home Medications: Home Medications NK [No Home Medications Reported] 10/08/18 [History Confirmed 10/08/18] PMH/Surg Hx/FS Hx/Imm Hx - Additional Past Medical History Additional PMH: None - Surgical History Surgical History: Yes Surgery Procedure, Year, and Place: Adnoidectomy and Ear Tubes as a child - Family History Known Family History: Positive: None Negative: Cardiac Disease, Hypertension, Diabetes - Social History Lives: With Family Alcohol Use: Occasionally Substance Use Type: None Smoking Status (MU): Heavy Every Day Tobacco Smoker Type: Cigarettes Amount Used/How Often: 1/2 PPD Length of Time of Smoking/Using Tobacco: Since Age 16 Have You Smoked in the Last Year: No When Did the Patient Quit Smoking/Using Tobacco: ~08/2015 Household Exposure Type: Cigarettes - Immunization History Most Recent Influenza Vaccination: not 2017 Vaccination Up to Date: Yes Review of Systems All Other Systems Reviewed And Are Negative: Yes Constitutional: Positive: Negative Skin: Positive: Negative Respiratory: Positive: Negative Cardiovascular: Positive: Negative Gastrointestinal: Positive: Negative Genitourinary: Positive: Negative Neurovascular: Positive: Negative Neurological: Positive: Negative Psychological: Positive: Negative Physical Exam - Summary Physical Exam Summary: GENERAL: NAD. WDWN. No pain distress. SKIN: No rashes, sores, lesions, or open wounds. NECK: Supple. Nontender. No lymphadenopathy. CHEST: CTAB. No r/r/w. No accessory muscle use. Breathing comfortably and in no distress. CV: RRR. Without m/r/g. Pulses intact. Cap refill <2seconds ABDOMEN: Soft. NTTP. No distention or guarding. No CVA tenderness. Bowel sounds present NEURO: Alert. PSYCH: Age appropriate behavior. Triage Information Reviewed: Yes Vital Signs: Initial Vital Signs Temp 98.4 F 10/08/18 16:04 Pulse 90 10/08/18 16:04 Resp 16 10/08/18 16:04 BP 102/69 10/08/18 16:04 Pulse Ox 99 10/08/18 16:04 Vital Signs Reviewed: Yes Complaint Female Dx - Course Course Of Treatment: Pt treated with 1gm of azithromycin in the clinic tonight. Advised to refrain from intercourse for 1 week and f/u if she develops symptoms - Differential Dx/Diagnosis Provider Diagnoses: Chlamydia Discharge - Sign-Out/Discharge Documenting (check all that apply): Patient Departure All imaging exams completed and their final reports reviewed: No Studies - Discharge Plan Condition: Stable Disposition: HOME Patient Education Materials: Chlamydia (ED) Referrals: No Primary Care Phys,NOPCP [Primary Care Provider] - Additional Instructions: If you develop a fever, shortness of breath, chest pain, new or worsening symptoms - please call your PCP or go to the ED. 1) You were treated today. Please do not engage in sexual intercourse for 1 week from today. - Billing Disposition and Condition Condition: STABLE Disposition: Home
== END 2018-10-08 16:26 | disposition home or self-care (01) ==
LOC: UCCORT 15:48
DX: A74.9 Chlamydial infection, unspecified (principal); F17.210 Nicotine dependence, cigarettes, uncomplicated
CPT/HCPCS: 99212; A9270-GY; G0463

== ENCOUNTER 2018-10-27 11:58 | Emergency (ER) | payer OTHER ==
[2018-10-27 12:26] VITALS: BP 125/84
[2018-10-27] MEDS ORDERED: cefTRIAXone VIAL(*) 250 MG VIAL IM ONE (13:14)
[2018-10-27] MEDS ORDERED: Azithromycin TAB* 250 MG PO ONE (13:15)
[2018-10-27] MEDS ORDERED: Lidocaine 1% MPF* 2 ML VIAL ONE (13:21)
--- NOTE | 2018-10-27 14:26 | UC ---
Abdominal Pain Female HPI - HPI Summary HPI Summary: Pt presents with so requesting treatment for Chlamydia. Pt states tested positive and was treated. Subsequently so also tested positive and was treated. They had unprotected intercourse in between. Pt states this past week had implenon removed. Pt states she tested positive again, but was not tested. Pt not using protection at this time. deniees abdominal pain. no n/v no vaginal discharge, itching. no other complaints Pts medications reviewed this visit - History of Current Complaint Chief Complaint: UCGeneralIllness Stated Complaint: PERSONAL Time Seen by Provider: 10/27/18 12:48 Hx Obtained From: Patient Hx Last Menstrual Period: 10/26/18 ?: No - LMP 09/28 Pain Intensity: 0 Pain Scale Used: 0-10 Numeric Allergies/Adverse Reactions: Allergies Allergy/AdvReac Type Severity Reaction Status Date / Time No Known Allergies Allergy Verified 10/27/18 12:17 PMH/Surg Hx/FS Hx/Imm Hx Previously Healthy: Yes - Surgical History Surgical History: Yes Surgery Procedure, Year, and Place: Adnoidectomy and Ear Tubes as a child - Family History Known Family History: Positive: None Negative: Cardiac Disease, Hypertension, Diabetes - Social History Alcohol Use: Occasionally Substance Use Type: None Smoking Status (MU): Heavy Every Day Tobacco Smoker Type: Cigarettes Amount Used/How Often: 1/2 PPD Length of Time of Smoking/Using Tobacco: Since Age 16 Have You Smoked in the Last Year: No When Did the Patient Quit Smoking/Using Tobacco: ~08/2015 Household Exposure Type: Cigarettes - Immunization History Most Recent Influenza Vaccination: not 2017 Most Recent Tetanus Shot: UTD Vaccination Up to Date: Yes Review of Systems All Other Systems Reviewed And Are Negative: Yes Constitutional: Positive: Negative Skin: Positive: Negative Gastrointestinal: Positive: Negative Genitourinary: Positive: Negative Physical Exam - Summary Physical Exam Summary: Vital Signs Reviewed: Yes A+Ox3, congested, cough Eyes: Conjunctiva Clear, GAIL. EOM intact and full ENT: Hearing grossly normal TM x 2 clear, no PND mmoist, uvula midline, no exudate, no erythema Neck: Positive: Supple Respiratory: Positive: coarse cough, diffuse wheeze + BS throughout no increased WOB, no accessory muscles Cardiovascular: RRR nl s1, s2 no m/r CBT <2 sec abd soft + BS nt/nd no guarding, no distension JOSE ALFREDO Yung - no external lesions. no discharge, bleeding, odor. no pain bimanual endocervical cultures taken Musculoskeletal Exam: PELLETIER x 4 without difficulty Strength Intact, ROM Intact Neurological: Positive: Alert, + sensation throughout Psychological: Positive: Normal Response To Family Skin: Positive: no rash, no ecchymosis Triage Information Reviewed: Yes Vital Signs: Initial Vital Signs Temp 97.9 F 10/27/18 12:18 Pulse 84 10/27/18 12:18 Resp 16 10/27/18 12:18 BP 125/84 10/27/18 12:18 Pulse Ox 99 10/27/18 12:18 Abd Pain Female Course/Dx - Course Course Of Treatment: Pt presents requesting treatment for chlamydia. Pt states recently tested positive, was treated, tested positive again without treatment. partner here to be treated as well. Pt without complaint. Pt with stable vs and non concerning exam - cultures take. urine unremarkable, neg. will treat. recommend abstinence or condom. pt to f/u for control. pt comfortable and in agreement with plan - Differential Dx/Diagnosis Provider Diagnosis: STD (female) Discharge - Sign-Out/Discharge Documenting (check all that apply): Patient Departure All imaging exams completed and their final reports reviewed: No Studies - Discharge Plan Condition: Stable Disposition: HOME Patient Education Materials: Sexually Transmitted Diseases (ED), Condom Use (ED ) Referrals: No Primary Care Phys,NOPCP [Primary Care Provider] - Additional Instructions: - It is VERY important you use a condom or do not have sex for a period of 7 days after receiving medications to treat sexually transmitted diseases - It is VERY important you do not participate in oral intercourse for a period of 7 days - you MUST arrange to get the depo shot if this is your preferred method of birthcontrol after 7 days - Billing Disposition and Condition Condition: STABLE Disposition: Home
== END 2018-10-27 13:47 | disposition home or self-care (01) ==
LOC: UCCORT 11:58
DX: A56.8 Sexually transmitted chlamydial infection of other sites (principal); Z32.02 Encounter for pregnancy test, result negative; Z87.891 Personal history of nicotine dependence
CPT/HCPCS: 81003; 84702; 87491; 87591; 96372; 99212; A9270-GY; G0463; J0696

== ENCOUNTER 2018-12-15 19:32 | Emergency (ER) | payer OTHER ==
[2018-12-15 20:22] VITALS: BP 113/81
--- NOTE | 2018-12-15 20:56 | UC ---
Nausea/Vomiting/Diarrhea HPI - HPI Summary HPI Summary: 23-year-old woman comes in with a chief complaint of nausea and vomiting. Had sudden onset a couple hours ago while at work. Work wanted her to come here to get further evaluated. She threw up one time. Still feels nauseous. No runny nose no sore throat no cough no chest congestion no abdominal pain no dysuria or diarrhea. Patient denies any concern of being . No fever. - History of Current Complaint Chief Complaint: UCGI Stated Complaint: VOMITTING Time Seen by Provider: 12/15/18 20:47 Hx Last Menstrual Period: last week in Oct 2018 Pain Intensity: 0 - Allergies/Home Medications Allergies/Adverse Reactions: Allergies Allergy/AdvReac Type Severity Reaction Status Date / Time No Known Allergies Allergy Verified 12/15/18 20:18 PMH/Surg Hx/FS Hx/Imm Hx Previously Healthy: Yes - Surgical History Surgical History: Yes Surgery Procedure, Year, and Place: Adnoidectomy and Ear Tubes as a child - Family History Known Family History: Positive: None Negative: Cardiac Disease, Hypertension, Diabetes - Social History Alcohol Use: Occasionally Substance Use Type: None Smoking Status (MU): Heavy Every Day Tobacco Smoker Type: Cigarettes Amount Used/How Often: 1/2 PPD Length of Time of Smoking/Using Tobacco: Since Age 16 Have You Smoked in the Last Year: No When Did the Patient Quit Smoking/Using Tobacco: ~08/2015 Household Exposure Type: Cigarettes - Immunization History Most Recent Influenza Vaccination: not 2017 Most Recent Tetanus Shot: UTD Vaccination Up to Date: Yes Review of Systems All Other Systems Reviewed And Are Negative: Yes Constitutional: Positive: Negative Skin: Positive: Negative Eyes: Positive: Negative ENT: Positive: Negative Respiratory: Positive: Negative Cardiovascular: Positive: Negative Gastrointestinal: Positive: Vomiting, Nausea Genitourinary: Positive: Negative Motor: Positive: Negative Neurovascular: Positive: Negative Musculoskeletal: Positive: Negative Neurological: Positive: Negative Psychological: Positive: Negative Is Patient Immunocompromised?: No Physical Exam Triage Information Reviewed: Yes Appearance: Well-Appearing, No Pain Distress, Well-Nourished Vital Signs: Initial Vital Signs Temp 97.2 F 12/15/18 20:19 Pulse 78 12/15/18 20:19 Resp 16 12/15/18 20:19 BP 113/81 12/15/18 20:19 Pulse Ox 100 12/15/18 20:19 Vital Signs Reviewed: Yes Eye Exam: Normal Eyes: Positive: Conjunctiva Clear ENT: Positive: Normal ENT inspection, Pharynx normal, TMs normal Neck exam: Normal Neck: Positive: Supple Respiratory: Positive: Lungs clear, Normal breath sounds, No respiratory distress Cardiovascular: Positive: RRR Abdomen Description: Positive: Nontender, Soft. Negative: CVA Tenderness (R), CVA Tenderness (L) Musculoskeletal Exam: Normal Musculoskeletal: Positive: Strength Intact, ROM Intact Neurological Exam: Normal Neurological: Positive: Alert, Muscle Tone Normal Psychological Exam: Normal Psychological: Positive: Age Appropriate Behavior Skin Exam: Normal Naus/Vom/Diarrhea Course/Dx - Differential Dx/Diagnosis Provider Diagnosis: Nausea & vomiting Condition At Discharge: Stable Discharge - Sign-Out/Discharge Documenting (check all that apply): Patient Departure All imaging exams completed and their final reports reviewed: No Studies - Discharge Plan Condition: Stable Disposition: HOME Prescriptions: Ondansetron ODT TAB* [Zofran 4 MG Odt TAB*] 4 mg PO Q6H PRN #10 tab.odt PRN Reason: Nausea Patient Education Materials: Acute Nausea and Vomiting (ED) Forms: *Work Release Referrals: [facility] [Outside] Additional Instructions: FOLLOW UP WITH YOUR DOCTOR IF NOT COMPLETELY IMPROVED. GET RECHECKED FOR ANY WORSENING OF YOUR CONDITION OR QUESTIONS OR CONCERNS. - Billing Disposition and Condition Condition: STABLE Disposition: Home
[2018-12-15] MEDS ORDERED: Ondansetron ODT TAB* 4 MG PO ONE ×2 (20:57)
== END 2018-12-15 21:03 | disposition home or self-care (01) ==
LOC: UCCORT 19:32
DX: R11.2 Nausea with vomiting, unspecified (principal); F17.210 Nicotine dependence, cigarettes, uncomplicated
CPT/HCPCS: 99212; A9270-GY; G0463

== ENCOUNTER 2019-02-12 16:32 | Emergency (ER) | payer OTHER ==
[2019-02-12 16:55] VITALS: BP 114/73
--- NOTE | 2019-02-12 17:26 | UC ---
Complaint Female HPI - HPI Summary HPI Summary: Pt states she is about 5 weeks late for her period. She has the Xplanon removed in June or July of 2018 and has had regular periods since then. She did a home test 2 days ago which was negative. She has not had any spotting or bleeding. Her last BM was about one week ago. Today after eating pizza, she vomited one time about 3pm. She denies nausea. She states she had one episode of slight lower abdominal cramping but that resolved and she has not had any since. She has never been . She had Chlamydia one time in November of this year. She denies any abnormal vaginal discharge. She is sexually active without using any control or condoms. - History Of Current Complaint Chief Complaint: UCGeneralIllness Stated Complaint: PERSONAL Time Seen by Provider: 02/12/19 16:50 Hx Obtained From: Patient Hx Last Menstrual Period: end Nov 2018 ?: No - Negative home test 2 days ago Onset/Duration: Gradual Onset - States some low back pain today and breasts are tender. Timing: Intermittent - No longer has any cramping or back pain presently Severity Initially: Mild Severity Currently: Mild Pain Intensity: 0 Character: Cramping - resolved Aggravating Factor(s): Other Alleviating Factor(s): Other Associated Signs And Symptoms: Positive: Back Pain - Back soreness has resolved. - Risk Factors Ectopic Risk Factor: IUD Use - Xplanon was removed last fall - Allergies/Home Medications Allergies/Adverse Reactions: Allergies Allergy/AdvReac Type Severity Reaction Status Date / Time No Known Allergies Allergy Verified 02/12/19 16:50 Home Medications: Home Medications NK [No Home Medications Reported] 02/12/19 [History Confirmed 02/12/19] PMH/Surg Hx/FS Hx/Imm Hx Previously Healthy: Yes - Surgical History Surgical History: Yes Surgery Procedure, Year, and Place: Adnoidectomy and Ear Tubes as a child - Family History Known Family History: Positive: None Negative: Cardiac Disease, Hypertension, Diabetes - Social History Alcohol Use: None Substance Use Type: None Smoking Status (MU): Heavy Every Day Tobacco Smoker Type: Cigarettes Amount Used/How Often: 1/2 PPD Length of Time of Smoking/Using Tobacco: Since Age 16 Have You Smoked in the Last Year: No When Did the Patient Quit Smoking/Using Tobacco: ~08/2015 Household Exposure Type: Cigarettes - Immunization History Most Recent Influenza Vaccination: not 2017 Most Recent Tetanus Shot: UTD Vaccination Up to Date: Yes Review of Systems All Other Systems Reviewed And Are Negative: Yes Constitutional: Positive: Negative Skin: Positive: Negative Eyes: Positive: Negative ENT: Positive: Negative Respiratory: Positive: Negative Cardiovascular: Positive: Negative Gastrointestinal: Positive: Other - No BM since last week. Slight abdominal cramping "Like I'm going to get my period" Genitourinary: Negative: Dysuria, Vaginal/Penile Burning, Vaginal/Penile Itching , Vaginal/Penile Discharge, Vaginal/Penile Pain, Vaginal/Penile Tenderness, Abnormal Bleeding Motor: Positive: Negative Neurovascular: Positive: Negative Musculoskeletal: Positive: Negative Neurological: Positive: Negative Psychological: Positive: Negative Is Patient Immunocompromised?: No Physical Exam Triage Information Reviewed: Yes Appearance: Well-Appearing, No Pain Distress, Well-Nourished Vital Signs: Initial Vital Signs Temp 97.7 F 02/12/19 16:50 Pulse 95 02/12/19 16:50 Resp 16 02/12/19 16:50 BP 114/73 02/12/19 16:50 Pulse Ox 98 02/12/19 16:50 Vital Signs Reviewed: Yes Eye Exam: Normal ENT Exam: Normal ENT: Positive: Normal ENT inspection Neck exam: Normal Neck: Positive: Supple Respiratory Exam: Normal Cardiovascular Exam: Normal Abdominal Exam: Normal Abdomen Description: Positive: Nontender, No Organomegaly, Soft Bowel Sounds: Positive: Present Musculoskeletal Exam: Normal Neurological Exam: Normal Psychological Exam: Normal Skin Exam: Normal Complaint Female Dx - Course Course Of Treatment: Pt has been comfortable here and completely pain free. She wanted a test because of the missed period. I referred her to [facility] or [facility] to establish care. If she develops abdominal pain or worsening symptoms, she is to go to the ER for further evaluation. - Differential Dx/Diagnosis Provider Diagnosis: Menstrual period late Discharge - Sign-Out/Discharge Documenting (check all that apply): Patient Departure All imaging exams completed and their final reports reviewed: No Studies - Discharge Plan Condition: Good Disposition: HOME Patient Education Materials: Abdominal Pain (ED) Referrals: No Primary Care Phys,NOPCP [Primary Care Provider] - Additional Instructions: Definite follow up in the ER if you develop increased abdominal pain. Follow up with an INTERIOR DESIGN TEACHER physican for further care regarding a late period. Please call [facility] at [phone] to get help establishing care with a primary care provider. - Billing Disposition and Condition Condition: GOOD Disposition: Home
== END 2019-02-12 18:01 | disposition home or self-care (01) ==
LOC: UCCORT 16:32
DX: N92.6 Irregular menstruation, unspecified (principal); M54.5 Low back pain; N64.89 Other specified disorders of breast; F17.210 Nicotine dependence, cigarettes, uncomplicated
CPT/HCPCS: 81003; 84702; 99212; G0463

== ENCOUNTER 2019-02-17 19:49 | Emergency (ER) | payer OTHER ==
--- OUTSIDE RECORDS SUMMARY | 2019-02-17 20:01 | XMS REPORT | Continuity of Care Document ---
:1995 External Reference #:[id number] Author Name Kiya Neal MD, PHD Address [address], [address] [place] [address] Care Team Providers Name Role Phone Kiya Neal MD, PHD Care Team Information Human Resource Intern Unavailable Kiya Neal MD, PHD Primary Care Physician Unavailable Payers Date Identification Numbers Payment Provider Subscriber Policy Number: [id number] [place] Medicaid Carline Long PayID: [id number] [address] [place] [address] Expires: 2019 Policy Number: [id number] Medicaid Louise [employer] Name: 1 1 [address] PayID: [id number] [place] [address] Expires: 2018 [employer] Louise Valentine [address] [place] [phone] Advance Directives Description No Information Available Problems Date Description Provider Status Onset: 02/16/2019 Amenorrhea Kiya Neal MD, PHD Active Family History Description No Information Available Social History Type Date Description Comments Sex Unknown Lives With Grandmother Diet Patient follows no dietary restrictions 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 ADL's/IADL's Independent with all ADL's Cigarette Use Pack Years - 05 ETOH Use Denies alcohol use Tobacco Use Start: Unknown Patient is a current smoker, smokes every day Smoking Status Reviewed: 02/16/19 Patient is a current smoker, smokes every day Allergies, Adverse Reactions, Alerts Description No Known Drug Allergies Medications Medication Date Status Form Strength Qnty SIG Indications Ordering Provider Active Capsules 27-0.8-200m 90caps 1 tab by N91.2 Erich Neal +Dha 019 g mouth margarita Huertas MD, PHD day Immunizations Description No Information Available Vital Signs Date Vital Result Comment 02/16/2019 4:04pm BP Systolic 139 mmHg BP Diastolic 83 mmHg Body Temperature 96.5 F Heart Rate 93 /min Respiratory Rate 18 /min Height 60 inches 5'0" Weight 158.00 lb BMI (Body Mass Index) 30.9 kg/m2 BSA (Body Surface Area) 1.69 m2 [place] body weight in kilograms 45 kg O2 % BldC Oximetry 96 % Results Test Date Facility Test Result H/L Range Note Laboratory 02/17/20 [facility] Dehydroepiandrosterone <pending> test finding [address] [place] [address] [phone] Prolactin <pending> Thyroid Stim Hormone <pending> Free T4 <pending> HCG, Quant <pending> Testosterone, Women/Child <pending> Procedures Description No Information Available Encounters Description No Information Available Plan of Treatment 02/16/2019 - Kiya Neal MD, [id number] Amenorrhea, unspecifiedNew Medication : Multi +Dha 27-0.8-200 mg - 1 tab by mouth every day
[2019-02-17 20:22] VITALS: BP 109/68
== END 2019-02-17 20:48 | disposition left against medical advice (07) ==
LOC: UCCORT 19:49
DX: Z53.21 Procedure and treatment not carried out due to patient leaving prior to being seen by health care provider (principal)